=== PATIENT | female | born 1990 | race Hispanic/Latino ===

== ENCOUNTER 2017-08-08 19:38 | Emergency (ER) | payer OTHER ==
--- NOTE | 2017-08-08 20:17 | ER ---
Nurse's Notes [facility] Name: Altagracia Garner Age: 26 yrs Sex: Female : 1990 Arrival Date: 08/08/2017 Time: 19:40 Bed 14 Private MD: Cheryl Mao Diagnosis: Abnormal uterine and vaginal bleeding, unspecified Presentation: 08/08 19:46 Presenting complaint: Patient states: Vaginal bleeding that began 9 days ago, lp1 worsening; pelvic cramping; Denies any N/V. Transition of care: patient was not received from another setting of care. Onset of symptoms was August 08, 2017. Care prior to arrival: None. 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 - Social history:: Smoking status: Patient uses tobacco products, smokes one-half pack cigarettes per day. Screenin:48 Abuse screen: Denies threats or abuse. Denies injuries from another. Nutritional lp1 screening: No deficits noted. Tuberculosis screening: No symptoms or risk factors identified. Fall Risk None identified. Assessment: 20:19 General: Appears in no apparent distress. comfortable, Behavior is calm, cooperative, wh appropriate for age. Pain: Complains of pain in suprapubic pain Pain does not radiate. Pain currently is 8 out of 10 on a pain scale. Pain began 2-3 days ago. Neuro: Level of Consciousness is awake, alert, obeys commands, Oriented to person, place, time, situation. Cardiovascular: Denies chest pain, Capillary refill < 3 seconds. Respiratory: Airway is patent Respiratory effort is even, unlabored, Respiratory pattern is regular, symmetrical. GI: Abdomen is flat, non-distended, Abd is soft and non tender X 4 quads. : Last void was August 08, 2017. Reports vaginal bleeding that is moderate flow, since 7-8 days ago. EENT: No signs and/or symptoms were reported regarding the EENT system. Derm: Skin is intact, is healthy with good turgor, Skin is pink, warm \T\ dry. normal. Musculoskeletal: Range of motion: intact in all extremities. Vital Signs: 19:48 BP 126 / 89; Pulse 104; Resp 18; Temp 98.2(O); Pulse Ox 99% on R/A; Weight 72.57 kg; lp1 Height 5 ft. 1 in. (154.94 cm); Pain 9/10; 20:22 BP 106 / 89; Pulse 96; Resp 18; Pulse Ox 98% on R/A; wh 19:48 Body Mass Index 30.23 (72.57 kg, 154.94 cm) lp1 ED Course: 19:40 Patient arrived in ED. am2 19:40 Cheryl Mao is Private Physician. am2 19:47 Triage completed. lp1 19:47 Arm band placed on right wrist. 1 19:55 Santos Brandon MD is Attending Physician. 19:58 Sharona Vallejo is Primary Nurse. 20:21 Patient has correct armband on for positive identification. Placed in gown. Bed in low wh position. Call light in reach. Side rails up X 1. Pulse ox on. NIBP on. 20:22 No provider procedures requiring assistance completed. Patient did not have IV access wh during this emergency room visit. Administered Medications: No medications were administered Outcome: 20:16 Discharge ordered by . 20:43 Discharged to home 20:43 Discharged to home ambulatory. 20:43 Condition: good 20:43 Discharge instructions given to patient, Instructed on discharge instructions, follow up and referral plans. medication usage, POC Uterine Bleeding Demonstrated understanding of instructions, follow-up care, POC Prescriptions given X 1. 20:44 Patient left the ED. Signatures: Chantelle Small, RN RN lp1 Jael Richards am2 Sharona Vallejo Santos Brandon MD MD
--- NOTE | 2017-08-08 20:17 | EDPHYS ---
Physician Documentation [facility] Name: Altagracia Garner Age: 26 yrs Sex: Female : 1990 Arrival Date: 08/08/2017 Time: 19:40 Bed 14 Private MD: Cheryl Mao ED Physician Santos Brandon HPI: 08/08 20:11 This 26 yrs old Female presents to ER via Ambulatory with complaints of gs Vaginal Bleeding, Abdominal Cramping. 20:11 The patient presents with vaginal bleeding that is light. Onset: The symptoms/episode gs began/occurred 9 day(s) ago. Modifying factors: The symptoms are alleviated by nothing, the symptoms are aggravated by nothing. Associated signs and symptoms: Pertinent positives: cramping. Severity of symptoms: At their worst the symptoms were mild, in the emergency department the symptoms are unchanged. The patient's method of control includes nothing. last regular lmp 07/13, sees dr hankins. 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 - Social history:: Smoking status: Patient uses tobacco products, smokes one-half pack cigarettes per day. ROS: 20:11 All other systems are negative. gs Exam: 20:11 Head/Face: Normocephalic, atraumatic. Eyes: Pupils equal round and reactive to light, gs extra-ocular motions intact. Lids and lashes normal. Conjunctiva and sclera are non-icteric and not injected. Cornea within normal limits. Periorbital areas with no swelling, redness, or edema. ENT: Nares patent. No nasal discharge, no septal abnormalities noted. Tympanic membranes are normal and external auditory canals are clear. Oropharynx with no redness, swelling, or masses, exudates, or evidence of obstruction, uvula midline. Mucous membranes moist. Neck: Trachea midline, no thyromegaly or masses palpated, and no cervical lymphadenopathy. Supple, full range of motion without nuchal rigidity, or vertebral point tenderness. No Meningismus. Chest/axilla: Normal chest wall appearance and motion. Nontender with no deformity. No lesions are appreciated. Cardiovascular: Regular rate and rhythm with a normal S1 and S2. No gallops, murmurs, or rubs. Normal PMI, no JVD. No pulse deficits. Respiratory: Lungs have equal breath sounds bilaterally, clear to auscultation and percussion. No rales, rhonchi or wheezes noted. No increased work of breathing, no retractions or nasal flaring. Abdomen/GI: Soft, non-tender, with normal bowel sounds. No distension or tympany. No guarding or rebound. No evidence of tenderness throughout. Back: No spinal tenderness. No costovertebral tenderness. Full range of motion. Skin: Warm, dry with normal turgor. Normal color with no rashes, no lesions, and no evidence of cellulitis. MS/ Extremity: Pulses equal, no cyanosis. Neurovascular intact. Full, normal range of motion. Neuro: Awake and alert, GCS 15, oriented to person, place, time, and situation. Cranial nerves II-XII grossly intact. Motor strength 5/5 in all extremities. Sensory grossly intact. Cerebellar exam normal. Normal gait. 20:11 Constitutional: The patient appears alert, awake. Vital Signs: 19:48 BP 126 / 89; Pulse 104; Resp 18; Temp 98.2(O); Pulse Ox 99% on R/A; Weight 72.57 kg; lp1 Height 5 ft. 1 in. (154.94 cm); Pain 9/10; 20:22 BP 106 / 89; Pulse 96; Resp 18; Pulse Ox 98% on R/A; wh 19:48 Body Mass Index 30.23 (72.57 kg, 154.94 cm) lp1 MDM: 20:02 Patient medically screened. 20:11 Data reviewed: vital signs, nurses notes. 20:11 Differential diagnosis: dysfunctional uterine bleeding, dysmenorrhea, ectopic gs , ED course: nontender nonsurgical requiring exam, VSS, NO WILL REFER TO TELECOMMUNICATION ENGINEER. 08/08 19:56 Order name: Urine Microscopic Only 08/08 20:08 Order name: Urine Dipstick--Ancillary (enter results) 08/08 19:56 Order name: Urine Test (obtain specimen); Complete Time: 19:58 08/08 19:56 Order name: Urine Dipstick-Ancillary (obtain specimen); Complete Time: 19:58 08/08 20:09 Order name: Urine --Ancillary (enter results) oe 08/08 20:09 Order name: Urine --Ancillary EDMS Administered Medications: No medications were administered Disposition: 08/08/17 20:16 Discharged to Home. Impression: Abnormal uterine and vaginal bleeding, unspecified. - Condition is Stable. - Discharge Instructions: Abnormal Uterine Bleeding. - Prescriptions for Provera 10 mg Oral tablet - take 1 tablet by ORAL route once daily for 5 days; 5 tablet. - Medication Reconciliation Form, Thank You Letter, Antibiotic Education, Prescription Opioid Use form. - Follow up: Private Physician; When: 1 - 2 days; Reason: Re-evaluation by your physician. Signatures: Dispatcher [employer] EDMS Chantelle Small, RN RN lp1 Sharona Vallejo Gregory, MD MD
[2017-08-08 20:58] LABS: Urine Bacteria <20 /HPF (<20)
[2017-08-08 20:59] LABS: Urine Blood 2+ (NEG); Urine Glucose NEGATIVE (NEG); Urine Protein NEGATIVE (NEG); Urine Specific Gravity 1.025 (1.005-1.030)
[2017-08-08 20:59] LABS: Urine Specific Gravity 1.025 (1.005-1.030)
[2017-08-08 20:59] LABS: Urine Culture Reflex Order NOT NEEDED; Urine Mucus 1+ /HPF (NONE SEEN)
== END 2017-08-08 20:44 | disposition home or self-care (01) ==
LOC: ER 19:38
DX: N93.9 Abnormal uterine and vaginal bleeding, unspecified (principal); F17.210 Nicotine dependence, cigarettes, uncomplicated; Z88.5 Allergy status to narcotic agent
CPT/HCPCS: 81003; 81015; 81025; 99283

== ENCOUNTER 2017-09-06 14:15 | Emergency (ER) | payer OTHER ==
[2017-09-06] MEDS ORDERED: IBUPROFEN 200 MG TAB PO ONE (15:23)
[2017-09-06] MEDS ORDERED: ACETAMINOPHEN 500 MG TAB ONE (15:23)
--- NOTE | 2017-09-06 15:26 | EDPHYS ---
Physician Documentation [facility] Name: Altagracia Garner Age: 26 yrs Sex: Female : 1990 Arrival Date: 09/06/2017 Time: 14:26 Bed 20 Private MD: ED Physician oHlland Albrecht HPI: 09/06 15:28 This 26 yrs old Female presents to ER via Ambulatory with complaints of Chest snw Pain, Back Pain. 15:28 Onset: The symptoms/episode began/occurred suddenly, 2 day(s) ago, and became snw persistent. Associated signs and symptoms: Pertinent negatives: cough, fever, vomiting. Modifying factors: The patient symptoms are alleviated by nothing, the patient symptoms are aggravated by movement. It is unknown whether or not the patient has had similar symptoms in the past. It is unknown whether or not the patient has recently seen a physician. 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 - Social history:: Smoking status: Patient/guardian denies using tobacco. ROS: 15:27 Constitutional: Negative for fever, chills, and weight loss, Eyes: Negative for injury, snw pain, redness, and discharge, ENT: Negative for injury, pain, and discharge, Neck: Negative for injury, pain, and swelling, Cardiovascular: Negative for chest pain, palpitations, and edema, Respiratory: Negative for shortness of breath, cough, wheezing, and pleuritic chest pain, Abdomen/GI: Negative for abdominal pain, nausea, vomiting, diarrhea, and constipation, Back: Negative for injury and pain, : Negative for injury, bleeding, discharge, and swelling, Skin: Negative for injury, rash, and discoloration, Neuro: Negative for headache, weakness, numbness, tingling, and seizure. 15:27 MS/extremity: Positive for decreased range of motion, pain, tenderness, of the right shoulder joint. Exam: 15:26 Constitutional: This is a well developed, well nourished patient who is awake, alert, snw and in no acute distress. Head/Face: Normocephalic, atraumatic. Eyes: Pupils equal round and reactive to light, extra-ocular motions intact. Lids and lashes normal. Conjunctiva and sclera are non-icteric and not injected. Cornea within normal limits. Periorbital areas with no swelling, redness, or edema. ENT: Nares patent. No nasal discharge, no septal abnormalities noted. Tympanic membranes are normal and external auditory canals are clear. Oropharynx with no redness, swelling, or masses, exudates, or evidence of obstruction, uvula midline. Mucous membranes moist. Neck: Trachea midline, no thyromegaly or masses palpated, and no cervical lymphadenopathy. Supple, full range of motion without nuchal rigidity, or vertebral point tenderness. No Meningismus. Chest/axilla: Normal chest wall appearance and motion. Nontender with no deformity. No lesions are appreciated. Cardiovascular: Regular rate and rhythm with a normal S1 and S2. No gallops, murmurs, or rubs. Normal PMI, no JVD. No pulse deficits. Respiratory: Lungs have equal breath sounds bilaterally, clear to auscultation and percussion. No rales, rhonchi or wheezes noted. No increased work of breathing, no retractions or nasal flaring. Abdomen/GI: Soft, non-tender, with normal bowel sounds. No distension or tympany. No guarding or rebound. No evidence of tenderness throughout. Back: No spinal tenderness. No costovertebral tenderness. Full range of motion. Skin: Warm, dry with normal turgor. Normal color with no rashes, no lesions, and no evidence of cellulitis. Neuro: Awake and alert, GCS 15, oriented to person, place, time, and situation. Cranial nerves II-XII grossly intact. Motor strength 5/5 in all extremities. Sensory grossly intact. Cerebellar exam normal. Normal gait. Psych: Awake, alert, with orientation to person, place and time. Behavior, mood, and affect are within normal limits. 15:26 Musculoskeletal/extremity: Extremities: ROM: limited active range of motion due to pain, limited passive range of motion due to pain, Circulation is intact in all extremities. Sensation intact. Vital Signs: 14:43 BP 121 / 89; Pulse 89; Resp 16 S; Temp 97.0(TE); Pulse Ox 98% on R/A; Weight 69.4 kg aa5 (R); Height 5 ft. 1 in. (154.94 cm) (R); Pain 10/10; 15:47 BP 118 / 87; Pulse 81; Resp 18; Temp 97.9; Pulse Ox 99% on R/A; ph 14:43 Body Mass Index 28.91 (69.40 kg, 154.94 cm) aa5 MDM: 15:22 Patient medically screened. snw 15:28 Data reviewed: vital signs, nurses notes. Data interpreted: Pulse oximetry: on room air snw is 98 %. Interpretation: normal. Counseling: I had a detailed discussion with the patient and/or guardian regarding: the historical points, exam findings, and any diagnostic results supporting the discharge/admit diagnosis, the presence of at least one elevated blood pressure reading (>120/80) during this emergency department visit, the need for outpatient follow up, to return to the emergency department if symptoms worsen or persist or if there are any questions or concerns that arise at home. Special discussion: Based on the history and exam findings, there is no indication for further emergent testing or inpatient evaluation. I discussed with the patient/guardian the need to see the orthopedic surgeon for further evaluation of the symptoms. I discussed with the patient/guardian the need to see the primary care provider for further evaluation of the symptoms. Administered Medications: 15:44 Drug: Valium 2.5 mg Route: PO; iw 15:48 Follow up: Response: No adverse reaction; Medication administered at discharge. ph 15:44 Drug: Motrin 400 mg Route: PO; iw 15:48 Follow up: Response: No adverse reaction; Medication administered at discharge. ph Disposition: 09/06/17 15:25 Discharged to Home. Impression: Pain in right shoulder. - Condition is Stable. - Discharge Instructions: Arthralgia, Musculoskeletal Pain, Shoulder Pain, Cryotherapy, [id number], Heat Therapy. - Medication Reconciliation Form, Thank You Letter, Antibiotic Education, Prescription Opioid Use form. - Follow up: Private Physician; When: 1 - 2 days; Reason: Recheck today's complaints, Continuance of care, Re-evaluation by your physician. Follow up: Emergency Department; When: As needed; Reason: Worsening of condition. Addendum: 09/08/2017 10:49 Co-signature as Attending Physician, Holland Albrecht MD I agree with the assessment and w a plan of care. Signatures: Milady Spaulding, ATMOSPHERIC DRIER TENDER-C ATMOSPHERIC DRIER TENDER-Csnw Suly Jacobs, RN RN Josefina Holley, RN RN aa5 Mandi Dailey RN RN [facility], MD LANRE [facility] in [facility]: (The following items were deleted from the chart) 09/06 15:53 15:25 09/06/2017 15:25 Discharged to Home. Impression: Pain in right shoulder. ph Condition is Stable. Forms are Medication Reconciliation Form, Thank You Letter, Antibiotic Education, Prescription Opioid Use. Follow up: Private Physician; When: 1 - 2 days; Reason: Recheck today's complaints, Continuance of care, Re-evaluation by your physician. Follow up: Emergency Department; When: As needed; Reason: Worsening of condition. snw
--- NOTE | 2017-09-06 15:26 | ER ---
Nurse's Notes [facility] Name: Altagracia Garner Age: 26 yrs Sex: Female : 1990 Arrival Date: 09/06/2017 Time: 14:26 Bed 20 Private MD: Diagnosis: Pain in right shoulder Presentation: 09/06 14:42 Presenting complaint: Patient states: pain to thoracic area and pain to right side of aa5 chest that began yesterday. Pt states "my pain gets worse when I move my neck". Pt also reports nausea. Transition of care: patient was not received from another setting of care. Onset of symptoms was September 2017. Initial Sepsis Screen: Does the patient meet any 2 criteria? No. Patient's initial sepsis screen is negative. Does the patient have a suspected source of infection? No. Patient's initial sepsis screen is negative. Care prior to arrival: None. 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 - Social history:: Smoking status: Patient/guardian denies using tobacco. Screenin:46 Abuse screen: Denies threats or abuse. Denies injuries from another. Nutritional iw screening: No deficits noted. Tuberculosis screening: No symptoms or risk factors identified. Fall Risk None identified. Assessment: 15:20 General: Appears in no apparent distress. uncomfortable, slender, well groomed, iw Behavior is calm, cooperative, appropriate for age, Denies fever, feeling ill. Pain: Complains of pain in anterior aspect of right upper chest Pain radiates to right scapular area Pain began 1 day ago. Neuro: Level of Consciousness is awake, alert, obeys commands, Oriented to person, place, time, situation. Cardiovascular: Reports chest pain, Denies diaphoresis, lightheadedness, nausea, palpitations, shortness of breath, syncope, vomiting, Capillary refill < 3 seconds Patient's skin is warm and dry. Respiratory: Airway is patent Respiratory effort is even, unlabored. Derm: Skin is intact, is healthy with good turgor, Skin is pink, warm \\T\\ dry. Musculoskeletal: Circulation, motion, and sensation intact. Range of motion: intact in all extremities, Swelling absent. Vital Signs: 14:43 BP 121 / 89; Pulse 89; Resp 16 S; Temp 97.0(TE); Pulse Ox 98% on R/A; Weight 69.4 kg aa5 (R); Height 5 ft. 1 in. (154.94 cm) (R); Pain 10/10; 15:47 BP 118 / 87; Pulse 81; Resp 18; Temp 97.9; Pulse Ox 99% on R/A; ph 14:43 Body Mass Index 28.91 (69.40 kg, 154.94 cm) aa5 ED Course: 14:26 Patient arrived in ED. as 14:43 Triage completed. aa5 14:43 Arm band placed on. aa5 15:19 Anusha Zelaya LVN is Primary Nurse. ed1 15:19 Milady Spaulding FNP-C is [facility]. snw 15:19 Holland Albrecht MD is Attending Physician. snw 15:47 Patient has correct armband on for positive identification. Bed in low position. Call ph light in reach. Side rails up X 1. Pulse ox on. NIBP on. 15:47 No provider procedures requiring assistance completed. Patient did not have IV access ph during this emergency room visit. Patient maintains SpO2 saturation greater than 95% on room air. Administered Medications: 15:44 Drug: Valium 2.5 mg Route: PO; iw 15:48 Follow up: Response: No adverse reaction; Medication administered at discharge. ph 15:44 Drug: Motrin 400 mg Route: PO; iw 15:48 Follow up: Response: No adverse reaction; Medication administered at discharge. ph Outcome: 15:25 Discharge ordered by . snw 15:52 Discharged to home ambulatory, with family. ph 15:52 Condition: good 15:52 Discharge instructions given to patient, Instructed on discharge instructions, follow up and referral plans. Demonstrated understanding of instructions, follow-up care. 15:53 Patient left the ED. ph Signatures: Milady Spaulding FNP-C COMMERCIAL INSULATOR-Divya Granados Irene, RN RN Josefina Holley RN RN aa5 Anusha Zelaya LVN LVN ed1 Mandi Dailey, RN RN ph
[2017-09-06] MEDS ORDERED: DIAZEPAM 5 MG TABLET ONE (15:39)
[2017-09-06] MEDS ORDERED: IBUPROFEN 400 MG TAB ONE (15:39)
== END 2017-09-06 15:53 | disposition home or self-care (01) ==
LOC: ER 14:15
DX: M25.511 Pain in right shoulder (principal); R07.9 Chest pain, unspecified; M54.9 Dorsalgia, unspecified
CPT/HCPCS: 99284

== ENCOUNTER 2018-04-08 19:56 | Emergency (ER) | payer OTHER ==
--- OUTSIDE RECORDS SUMMARY | 2018-04-08 19:58 | XMS REPORT ---
:1990 [facility] Address [address] [place] [address] Care Team Providers Name Role Phone Unavailable Unavailable Unavailable Payers Payer Name Policy Type Policy Number Effective Date Expiration Date Problems This patient has no known problems. Allergies, Adverse Reactions, Alerts Allergy Allergy Status Severity Reaction(s) Onset Inactive Treating Comments Name Type Date Date Clinician ketorolac KANNAN Active [place] 2017-12 00:00:0 0 Medications This patient has no known medications.
[2018-04-08 20:44] LABS: Urine Blood NEGATIVE (NEG); Urine Glucose NEGATIVE (NEG); Urine Protein NEGATIVE (NEG)
[2018-04-08 20:50] LABS: Urine RBC NONE SEEN /HPF (NONE SEEN)
[2018-04-08 20:51] LABS: Urine Bacteria <20 /HPF (<20)
[2018-04-08 20:52] LABS: Urine Culture Reflex Order REFLEXED
[2018-04-08 21:02] LABS: Absolute Lymphocytes (CBC) 1.5 K/uL (0.7-4.9); Absolute Monocytes 0.5 K/uL (0.1-1.3); Absolute Neutrophil 6.4 K/uL (1.8-8.0); Basophils % 0.6 % (0-1.3); Hematocrit 36.1 % (36.0-45.0); Lymphocytes % 17.3 % (15.3-44.8); MCH 28.4 pg (27.0-35.0); MCV 84.9 fL (80-100); Monocytes % 5.9 % (3.3-12.3); RBC Red Blood Cell Count 4.25 M/uL (3.86-4.86)
[2018-04-08 21:04] LABS: Potassium 3.6 mmol/L (3.5-5.1)
[2018-04-08] MEDS ORDERED: NA CHLORIDE 0.9% 1,000 ML ONE (21:12)
--- NOTE | 2018-04-08 21:22 | ER ---
Nurse's Notes [facility] Name: Altagracia Garner Age: 27 yrs Sex: Female : 1990 Arrival Date: 04/08/2018 Time: 19:58 Bed 30 Private MD: Diagnosis: Cystitis Presentation: 04/08 20:04 Presenting complaint: Patient states: left lower abd pain, left flank pain X2 days. pt ak1 c/o nausea and Diarrhea X2 days. 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 Transition of care: patient was not received from another setting of care. Onset of symptoms is unknown. Risk Assessment: Do you want to hurt yourself or someone else? Patient reports no desire to harm self or others. Initial Sepsis Screen: Does the patient meet any 2 criteria? No. Patient's initial sepsis screen is negative. Does the patient have a suspected source of infection? No. Patient's initial sepsis screen is negative. Care prior to arrival: None. 20:04 Acuity: MEG 3 ak1 20:04 Method Of Arrival: Ambulatory ak1 Triage Assessment: 20:05 General: Appears in no apparent distress. Behavior is calm, cooperative. 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 - Social history:: Smoking status: Patient/guardian denies using tobacco. - Ebola Screening: : No symptoms or risks identified at this time. Screenin:10 Abuse screen: Denies threats or abuse. Denies injuries from another. Nutritional kr2 screening: No deficits noted. Tuberculosis screening: No symptoms or risk factors identified. Fall Risk None identified. Assessment: 20:06 General: Appears in no apparent distress. uncomfortable, well groomed, well developed, kr2 well nourished, Behavior is calm, cooperative, appropriate for age. Pain: Complains of pain in left lower quadrant Pain does not radiate. Pain currently is 5 out of 10 on a pain scale. Quality of pain is described as sharp, Is continuous, Alleviated by rest, Aggravated by increased activity. Neuro: Level of Consciousness is awake, alert, obeys commands, Oriented to person, place, time, situation, Appropriate for age. Cardiovascular: Capillary refill < 3 seconds in bilateral fingers Patient's skin is warm and dry. Respiratory: Airway is patent Respiratory effort is even, unlabored, Respiratory pattern is regular, symmetrical. GI: GI: Abdomen is flat, non-distended, Abd is soft X 4 quads Abdomen is tender to palpation in left lower quadrant Reports nausea. : Denies burning with urination. EENT: Oral mucosa is moist. Derm: Skin is intact, is healthy with good turgor, Skin is pink, warm \T\ dry. Musculoskeletal: Circulation, motion, and sensation intact. 21:20 Reassessment: Patient appears in no apparent distress at this time. Patient and/or kr2 family updated on plan of care and expected duration. Pain level reassessed. Patient is alert, oriented x 3, equal unlabored respirations, skin warm/dry/pink. Patient states symptoms have improved. Vital Signs: 20:03 BP 122 / 85; Pulse 99; Resp 18; Temp 98.1; Pulse Ox 100% on R/A; Weight 63.5 kg (R); ak1 Height 5 ft. 9 in. (175.26 cm) (R); Pain 10/10; 22:49 BP 118 / 86; Pulse 95; Resp 18; Pulse Ox 99% on R/A; kr2 20:03 Body Mass Index 20.67 (63.50 kg, 175.26 cm) ak1 ED Course: 19:58 Patient arrived in ED. ds1 20:03 Arm band placed on Patient placed in an exam room, on a stretcher, Patient notified of ak1 wait time. 20:04 Triage completed. ak1 20:05 Patient has correct armband on for positive identification. Bed in low position. Call kr2 light in reach. Side rails up X 1. Pulse ox on. NIBP on. Door closed. Warm blanket given. Head of bed elevated. 20:11 Santos Brandon MD is Attending Physician. gs 20:28 Benita Aviles RN is Primary Nurse. kr2 20:38 Patient taken to ultrasound. via wheelchair. cy 20:39 Urine collected: clean catch specimen, cloudy. Inserted saline lock: 20 gauge in right mt antecubital area, using aseptic technique. Blood collected. 21:04 Renal Ultrasound-Complete In Process Unspecified. EDMS 21:04 TRANSVAG OB In Process Unspecified. EDMS 21:07 Ultrasound completed. Patient tolerated well. Patient moved back from ultrasound. cy 21:45 No provider procedures requiring assistance completed. Patient did not have IV access kr2 during this emergency room visit. Administered Medications: Discontinued: NS 0.9% 1000 ml IV at 1 bolus Per protocol; 1000 mL bolus 21:15 Drug: NS 0.9% 1000 ml Route: IV; Rate: 1 bolus; Site: right antecubital; kr2 21:55 Follow up: Response: No adverse reaction; IV Status: Order to discontinue infusion kr2 Outcome: 21:21 Discharge ordered by . justin 21:50 Discharged to home ambulatory. kr2 21:50 Condition: good 21:50 Discharge instructions given to patient, Instructed on discharge instructions, follow up and referral plans. Demonstrated understanding of instructions, follow-up care. 21:57 Patient left the ED. kr2 Signatures: Dispatcher [employer] [facility] Laure Davis ds1 Krysten Slater RN RN ak1 Isa Tariq sc Santos Brandon MD MD gs Reaves, Karey, RN RN kr2 Jessica Tsang cy
--- NOTE | 2018-04-08 21:22 | RAD REPORT ---
EXAM DESCRIPTION: US - Renal Ultrasound-Complete - 04/08/2018 9:03 pm CLINICAL HISTORY: . Abdominal pain COMPARISON: None. FINDINGS: The right kidney measures 11 cm with a normal echotexture. The left kidney measures 11 cm with a normal echotexture. Hydronephrosis is not seen. No gross abnormality of bladder is seen IMPRESSION: Unremarkable renal ultrasound.
--- NOTE | 2018-04-08 21:22 | EDPHYS ---
Physician Documentation [facility] Name: Altagracia Garner Age: 27 yrs Sex: Female : 1990 Arrival Date: 04/08/2018 Time: 19:58 Bed 30 Private MD: ED Physician Santos Brandon HPI: 04/09 19:50 This 27 yrs old Female presents to ER via Ambulatory with complaints of gs Abdominal Pain, 8 Wks Preg. 19:50 Onset: The symptoms/episode began/occurred 2 day(s) ago. gs 20:46 Associated signs and symptoms: Pertinent positives: cramping, dysuria, Pertinent gs negatives: fever. Severity of symptoms: At their worst the symptoms were mild, in the emergency department the symptoms are unchanged. 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 - Social history:: Smoking status: Patient/guardian denies using tobacco. - Ebola Screening: : No symptoms or risks identified at this time. ROS: 04/09 20:46 All other systems are negative. gs 20:46 : Negative for vaginal bleeding, vaginal discharge. gs Exam: 20:46 Head/Face: Normocephalic, atraumatic. Eyes: Pupils equal round and reactive to light, gs extra-ocular motions intact. Lids and lashes normal. Conjunctiva and sclera are non-icteric and not injected. Cornea within normal limits. Periorbital areas with no swelling, redness, or edema. ENT: Nares patent. No nasal discharge, no septal abnormalities noted. Tympanic membranes are normal and external auditory canals are clear. Oropharynx with no redness, swelling, or masses, exudates, or evidence of obstruction, uvula midline. Mucous membranes moist. Neck: Trachea midline, no thyromegaly or masses palpated, and no cervical lymphadenopathy. Supple, full range of motion without nuchal rigidity, or vertebral point tenderness. No Meningismus. Chest/axilla: Normal chest wall appearance and motion. Nontender with no deformity. No lesions are appreciated. Cardiovascular: Regular rate and rhythm with a normal S1 and S2. No gallops, murmurs, or rubs. Normal PMI, no JVD. No pulse deficits. Respiratory: Lungs have equal breath sounds bilaterally, clear to auscultation and percussion. No rales, rhonchi or wheezes noted. No increased work of breathing, no retractions or nasal flaring. Back: No spinal tenderness. No costovertebral tenderness. Full range of motion. Skin: Warm, dry with normal turgor. Normal color with no rashes, no lesions, and no evidence of cellulitis. MS/ Extremity: Pulses equal, no cyanosis. Neurovascular intact. Full, normal range of motion. Neuro: Awake and alert, GCS 15, oriented to person, place, time, and situation. Cranial nerves II-XII grossly intact. Motor strength 5/5 in all extremities. Sensory grossly intact. Cerebellar exam normal. Normal gait. 20:46 Constitutional: The patient appears alert, awake. 20:46 Abdomen/GI: Palpation: mild abdominal tenderness, in the suprapubic area, rebound tenderness, is not appreciated. Vital Signs: 04/08 20:03 BP 122 / 85; Pulse 99; Resp 18; Temp 98.1; Pulse Ox 100% on R/A; Weight 63.5 kg (R); ak1 Height 5 ft. 9 in. (175.26 cm) (R); Pain 10/10; 22:49 BP 118 / 86; Pulse 95; Resp 18; Pulse Ox 99% on R/A; kr2 20:03 Body Mass Index 20.67 (63.50 kg, 175.26 cm) ak1 MDM: 20:15 Patient medically screened. 04/09 20:46 Differential diagnosis: threatened Ab, inevitable Ab, urinary tract infection. Data reviewed: vital signs, nurses notes. Response to treatment: the patient's symptoms have markedly improved after treatment, and as a result, I will discharge patient. 04/08 20:27 Order name: CBC with Diff; Complete Time: 21:20 04/08 20:27 Order name: Basic Metabolic Panel; Complete Time: 21:20 04/08 20:27 Order name: Urine Microscopic Only; Complete Time: 21:20 04/08 20:40 Order name: Urine Dipstick--Ancillary (enter results); Complete Time: 21:20 hi 04/08 20:40 Order name: Urine --Ancillary (enter results); Complete Time: 21:20 hi 04/08 20:53 Order name: Urine Culture EDNJ 04/08 20:27 Order name: Urine Dipstick-Ancillary (obtain specimen); Complete Time: 20:40 04/08 20:31 Order name: Renal Ultrasound-Complete; Complete Time: 21:36 EDMS 04/08 20:33 Order name: TRANSVAG OB; Complete Time: 21:36 EDMS Administered Medications: Discontinued: NS 0.9% 1000 ml IV at 1 bolus Per protocol; 1000 mL bolus 04/08 21:15 Drug: NS 0.9% 1000 ml Route: IV; Rate: 1 bolus; Site: right antecubital; kr2 21:55 Follow up: Response: No adverse reaction; IV Status: Order to discontinue infusion kr2 Disposition: 04/08/18 21:21 Discharged to Home. Impression: Cystitis. - Condition is Stable. - Discharge Instructions: Urinary Tract Infection, Adult, First Trimester of . - Prescriptions for Keflex 500 mg Oral Capsule - take 1 capsule by ORAL route every 12 hours for 5 days; 10 capsule. - Medication Reconciliation Form, Thank You Letter, Antibiotic Education, Prescription Opioid Use form. - Follow up: Private Physician; When: 2 - 3 days; Reason: Re-evaluation by your physician. Signatures: Dispatcher [facility] Krysten Slater RN RN ak1 Santos Brandon MD MD Benita Aviles RN RN kr2 Corrections: (The following items were deleted from the chart) 20:31 20:28 Rp Exam Limited+US.RAD.BRZ ordered. [facility] EDNJ 20:33 20:28 Pelvis Complete+US.RAD.BRZ ordered. [facility] 21:57 21:21 04/08/2018 21:21 Discharged to Home. Impression: Cystitis. Condition is Stable. kr2 Forms are Medication Reconciliation Form, Thank You Letter, Antibiotic Education, Prescription Opioid Use. Follow up: Private Physician; When: 2 - 3 days; Reason: Re-evaluation by your physician.
--- NOTE | 2018-04-08 21:25 | RAD REPORT ---
EXAM DESCRIPTION: US - TRANSVAG OB - 04/08/2018 9:03 pm CLINICAL HISTORY: with abdominal pain COMPARISON: None FINDINGS: The uterus measures 10 x 8 x 8 centimeters. A gestational sac is present within the endom etrium. Within this is a yolk sac and pole with a crown-rump length 2.8 centimeters. Cardiac ac tivity 166 beats per minute. Left ovary is normal in size and echotexture. Right ovary was not seen. No adnexal mass visualized No significant free fluid. IMPRESSION: Single live intrauterine estimated gestational age 9 weeks 4 days RUPERTO 11/08/19 19
== END 2018-04-08 21:57 | disposition home or self-care (01) ==
LOC: ER 19:56
DX: O23.11 Infections of bladder in pregnancy, first trimester (principal); Z3A.09 9 weeks gestation of pregnancy
CPT/HCPCS: 36415; 76770; 76813; 80048; 81003; 81015; 81025; 85025; 87086; 87088; 96360; 99284; J7030

== ENCOUNTER 2018-05-22 12:49 | Emergency (ER) | payer OTHER ==
--- OUTSIDE RECORDS SUMMARY | 2018-05-22 12:53 | XMS REPORT ---
:1990 [facility] Address [address] [place] [address] Care Team Providers Name Role Phone Unavailable Unavailable Unavailable Payers Payer Name Policy Type Policy Number Effective Date Expiration Date Problems This patient has no known problems. Allergies, Adverse Reactions, Alerts Allergy Allergy Status Severity Reaction(s) Onset Inactive Treating Comments Name Type Date Date Clinician ketorolac DA Active [place] 2018-05 00:00:0 0 ketorolac DA Active [place] 2017-12 00:00:0 0 Medications This patient has no known medications.
--- NOTE | 2018-05-22 15:16 | RAD REPORT ---
EXAM DESCRIPTION: US - OB Limited - 05/22/2018 3:07 pm CLINICAL HISTORY: with abdominal COMPARISON: April 2018 FINDINGS: Single live intrauterine is in breech presentation. The placenta is anterior. Am niotic fluid is within normal limits. Cardiac activity 147 beats per minute. BPD 3.5 centimeter 16 weeks 5 days HC 12.2 centimeter 16 weeks 1 day AC 10.59 centimeter 16 weeks 4 days FL 2.1 centimeter 16 weeks 1 day Cervix 3.1 centimeters The right and left adnexa appear unremarkable. IMPRESSION: A single live into in breech presentation Estimated gestational age 16 weeks 2 days RUPERTO 11/04/2018 Normal amniotic fluid If a survey is desired it should be performed in proximally 2 weeks
[2018-05-22] MEDS ORDERED: PROMETHAZINE 25 MG/ML VIAL ONE (15:42)
[2018-05-22] MEDS ORDERED: NA CHLORIDE 0.9% 1,000 ML ONE (15:42)
[2018-05-22 15:55] LABS: BUN Blood Urea Nitrogen 8 mg/dL (7-18); Bicarbonate 25 mmol/L (21-32); Glucose Level 74 mg/dL (74-106); Potassium 3.9 mmol/L (3.5-5.1); Sodium Level 139 mmol/L (136-145)
[2018-05-22 15:58] LABS: Absolute Lymphocytes (CBC) 1.9 K/uL (0.7-4.9); Absolute Monocytes 0.6 K/uL (0.1-1.3); Absolute Neutrophil 6.3 K/uL (1.8-8.0); Basophils % 0.4 % (0-1.3); Eosinophils % 0.4 % (0-4.4); Lymphocytes % 21.2 % (15.3-44.8); MPV 8.8 fL (7.6-11.3); RBC Red Blood Cell Count 3.95 M/uL (3.86-4.86)
[2018-05-22 17:06] LABS: Urine Bacteria 20-50 /HPF (<20); Urine Culture Reflex Order REFLEXED; Urine RBC <5 /HPF (NONE SEEN)
--- NOTE | 2018-05-22 17:21 | ER ---
Nurse's Notes [facility] Name: Altagracia Garner Age: 27 yrs Sex: Female : 1990 Arrival Date: 05/22/2018 Time: 12:53 Bed 23 Private MD: Diagnosis: Vomiting of , unspecified Presentation: 05/22 12:56 Presenting complaint: Patient states: N/V/D and headache x 2 days, not tolerating hb fluids. Pt reports she is 16 weeks , , RUPERTO 11/06/18. Transition of care: patient was not received from another setting of care. Onset of symptoms was May 21, 2018. Risk Assessment: Do you want to hurt yourself or someone else? Patient reports no desire to harm self or others. Care prior to arrival: None. 12:56 Method Of Arrival: Ambulatory hb 12:56 Acuity: MEG 3 hb 17:36 Initial Sepsis Screen: Does the patient meet any 2 criteria? RR > 20 per min. Does the ch patient have a suspected source of infection? No. Patient's initial sepsis screen is negative. Triage Assessment: 16:00 General: Appears in no apparent distress. Behavior is cooperative. GI: Reports nausea, ch vomiting. 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 - Social history:: Smoking status: Patient/guardian denies using tobacco. - Ebola Screening: : No symptoms or risks identified at this time. Screenin:59 Abuse screen: Denies threats or abuse. Denies injuries from another. Nutritional hb screening: No deficits noted. Tuberculosis screening: No symptoms or risk factors identified. Fall Risk None identified. Assessment: 15:24 Pain: Denies pain. Neuro: No deficits noted. Respiratory: Airway is patent Respiratory ch effort is even, unlabored, Breath sounds are clear bilaterally. GI: Abdomen is round non-distended, Reports diarrhea, nausea, vomiting. : Denies vaginal bleeding. Derm: Skin is intact, Skin is dry, Skin is pale. Musculoskeletal: No signs and/or symptoms reported regarding the musculoskeletal system. 15:41 Reassessment: Patient appears in no apparent distress at this time. No changes from previously documented assessment. Patient and/or family updated on plan of care and expected duration. Pain level reassessed. 17:34 Reassessment: Patient appears in no apparent distress at this time. Patient and/or ch family updated on plan of care and expected duration. Pain level reassessed. Patient is alert, oriented x 3, equal unlabored respirations, skin warm/dry/pink. Patient states feeling better. Patient states symptoms have improved. pt drinks cup of water, tolerated well. pt states she feels better. . Vital Signs: 12:57 BP 136 / 80; Pulse 102; Resp 16; Temp 97.5; Pulse Ox 100% on R/A; Pain 9/10; hb 15:14 BP 124 / 104; Pulse 90; Resp 20; Pulse Ox 100% ; Pain 10/10; ds4 15:41 BP 110 / 62; Pulse 88; Resp 14; Temp 98.9; Pulse Ox 99% on R/A; Pain 0/10; ch 17:34 BP 108 / 52; Pulse 74; Resp 16; Temp 98.4; Pulse Ox 99% on R/A; Pain 0/10; ch ED Course: 12:53 Patient arrived in ED. rg4 12:57 Triage completed. hb 12:59 Arm band placed on. hb 14:54 Kylie Haas FNP-C is PHCP. kb 14:54 Steve Dodson MD is Attending Physician. kb 15:07 Comfort Hobson, PAULINO is Primary Nurse. ch 15:08 US OB Limited In Process Unspecified. EDMS 15:24 No apparent distress. Resting quietly. ch 15:24 Patient has correct armband on for positive identification. Placed in gown. Bed in low ch position. Call light in reach. Side rails up X 1. Adult w/ patient. Pulse ox on. NIBP on. 15:24 No provider procedures requiring assistance completed. Urine collected:. Inserted ch saline lock: 18 gauge in right antecubital area, using aseptic technique. Blood collected. 15:41 Warm blanket given. ch 17:34 IV discontinued, intact, bleeding controlled, No redness/swelling at site. Pressure ch dressing applied. Administered Medications: 15:40 Drug: NS 0.9% 1000 ml Route: IV; Rate: 1000 ml; Site: right antecubital; ch 16:20 Follow up: IV Status: Completed infusion; IV Intake: 1000ml ch 15:40 Drug: Phenergan 12.5 mg Route: IVP; Infused Over: 10 mins; Site: right antecubital; ch 16:10 Follow up: Response: No adverse reaction; Marked relief of symptoms ch Intake: 16:20 IV: 1000ml; Total: 1000ml. ch Outcome: 17:20 Discharge ordered by . kb 17:34 Discharged to home ambulatory, with family. ch 17:34 Condition: improved 17:34 Discharge instructions given to patient, Instructed on discharge instructions, follow up and referral plans. medication usage, Demonstrated understanding of instructions, follow-up care, medications, Prescriptions given X 1. 17:40 Patient left the ED. eb Signatures: Dispatcher [employer] [facility] Kylie Haas, ACLS NURSE-C ACLS NURSE-Comfort Powell, PAULINO RN Osman Hampton ds4 Angelic Wright RN RN Joanie Kramer rg4 Michela Jacobsen Corrections: (The following items were deleted from the chart) 12:58 12:56 Presenting complaint: Patient states: N/V/D x 2 days, not tolerating fluids. Pt hb reports she is 16 weeks , , RUPERTO 11/06/18 hb
--- NOTE | 2018-05-22 17:21 | EDPHYS ---
Physician Documentation [facility] Name: Altagracia Garner Age: 27 yrs Sex: Female : 1990 Arrival Date: 05/22/2018 Time: 12:53 Bed 23 Private MD: ED Physician Steve Dodson HPI: 05/22 15:36 This 27 yrs old Female presents to ER via Ambulatory with complaints of kb Vomiting, Decreased Movement 16 wks . 15:15 The estimated gestational age is 16 weeks. kb 15:36 The patient presents to the emergency department with nausea and vomiting. kb course: care: private OB physician, Leakage of Fluid: none appreciated, Risk/complications: no obvious risks or complications are appreciated. Previous pregnancies: in previous pregnancies patient has had. Associated signs and symptoms: Pertinent positives: diarrhea, nausea, vomiting, Pertinent negatives: abdominal pain, chest pain, dysuria, fever, frequency, ruptured membranes, seizure, shortness of breath, vaginal bleeding, vaginal discharge. The patient has not experienced similar symptoms in the past. The patient has not recently seen a physician. Pt reports decreased appetite, unable to keep anything down. n/v/d for 2 days. OB is OOT. . 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 - Social history:: Smoking status: Patient/guardian denies using tobacco. - Ebola Screening: : No symptoms or risks identified at this time. ROS: 15:39 Constitutional: Negative for fever, chills, and weight loss, Cardiovascular: Negative kb for chest pain, palpitations, and edema, Respiratory: Negative for shortness of breath, cough, wheezing, and pleuritic chest pain, Back: Negative for injury and pain, : Negative for injury, bleeding, discharge, and swelling, MS/Extremity: Negative for injury and deformity, Skin: Negative for injury, rash, and discoloration, Neuro: Negative for headache, weakness, numbness, tingling, and seizure. 15:39 Abdomen/GI: Positive for abdominal pain, nausea, vomiting, and diarrhea. Exam: 15:39 Constitutional: This is a well developed, well nourished patient who is awake, alert, kb and in no acute distress. Head/Face: Normocephalic, atraumatic. Chest/axilla: Normal chest wall appearance and motion. Nontender with no deformity. No lesions are appreciated. Cardiovascular: Regular rate and rhythm with a normal S1 and S2. No gallops, murmurs, or rubs. Normal PMI, no JVD. No pulse deficits. Respiratory: Lungs have equal breath sounds bilaterally, clear to auscultation and percussion. No rales, rhonchi or wheezes noted. No increased work of breathing, no retractions or nasal flaring. Abdomen/GI: Soft, non-tender, with normal bowel sounds. No distension or tympany. No guarding or rebound. No evidence of tenderness throughout. Back: No spinal tenderness. No costovertebral tenderness. Full range of motion. Skin: Warm, dry with normal turgor. Normal color with no rashes, no lesions, and no evidence of cellulitis. MS/ Extremity: Pulses equal, no cyanosis. Neurovascular intact. Full, normal range of motion. Neuro: Awake and alert, GCS 15, oriented to person, place, time, and situation. Cranial nerves II-XII grossly intact. Motor strength 5/5 in all extremities. Sensory grossly intact. Cerebellar exam normal. Normal gait. Vital Signs: 12:57 BP 136 / 80; Pulse 102; Resp 16; Temp 97.5; Pulse Ox 100% on R/A; Pain 9/10; hb 15:14 BP 124 / 104; Pulse 90; Resp 20; Pulse Ox 100% ; Pain 10/10; ds4 15:41 BP 110 / 62; Pulse 88; Resp 14; Temp 98.9; Pulse Ox 99% on R/A; Pain 0/10; ch 17:34 BP 108 / 52; Pulse 74; Resp 16; Temp 98.4; Pulse Ox 99% on R/A; Pain 0/10; ch MDM: 14:54 Patient medically screened. kb 15:39 Data reviewed: vital signs, nurses notes. Data interpreted: Pulse oximetry: on room air kb is 100 %. Interpretation: normal. 17:20 Counseling: I had a detailed discussion with the patient and/or guardian regarding: the kb historical points, exam findings, and any diagnostic results supporting the discharge/admit diagnosis, lab results, radiology results, the need for outpatient follow up, an OB/Gyne specialist, to return to the emergency department if symptoms worsen or persist or if there are any questions or concerns that arise at home. ED course: Pt tolerating PO intake. 05/22 15:14 Order name: CBC with Diff; Complete Time: 16:10 kb 05/22 15:14 Order name: Basic Metabolic Panel; Complete Time: 15:58 kb 05/22 15:16 Order name: Urine Dipstick--Ancillary (enter results) eb 05/22 15:16 Order name: Urine --Ancillary (enter results) eb 05/22 16:10 Order name: Urine Microscopic Only; Complete Time: 17:17 kb 05/22 17:07 Order name: Urine Culture EDAK 05/22 14:30 Order name: OB Limited; Complete Time: 15:19 snw 05/22 15:14 Order name: Urine Dipstick-Ancillary (obtain specimen); Complete Time: 15:41 kb 05/22 15:14 Order name: IV Start; Complete Time: 15:41 kb 05/22 16:10 Order name: PO challenge; Complete Time: 16:58 kb Administered Medications: 15:40 Drug: NS 0.9% 1000 ml Route: IV; Rate: 1000 ml; Site: right antecubital; ch 16:20 Follow up: IV Status: Completed infusion; IV Intake: 1000ml ch 15:40 Drug: Phenergan 12.5 mg Route: IVP; Infused Over: 10 mins; Site: right antecubital; ch 16:10 Follow up: Response: No adverse reaction; Marked relief of symptoms ch Disposition: 05/22/18 17:20 Discharged to Home. Impression: Vomiting of , unspecified. - Condition is Stable. - Discharge Instructions: Morning Sickness, [id number]. - Prescriptions for Phenergan 25 mg Rectal Suppository - insert 1 suppository by RECTAL route every 6 hours As needed; 12 suppository. - Medication Reconciliation Form, Thank You Letter, Antibiotic Education, Prescription Opioid Use form. - Follow up: Emergency Department; When: As needed; Reason: Worsening of condition. Follow up: Private Physician; When: 2 - 3 days; Reason: Recheck today's complaints, Continuance of care, Re-evaluation by your physician. Addendum: 05/29/2018 09:32 Co-signature as Attending Physician, Steve Dodson MD I agree with the assessment and k dr plan of care. Signatures: Dispatcher [employer] EDMS Kylie Haas, TAILOR HELPER-C TAILOR HELPER-Ckb Comfort Hobson, RN RN Steve Dodson MD MD [email or web address] Angelic Wright, RN RN Michela Jacobsen Corrections: (The following items were deleted from the chart) 05/22 17:40 17:20 05/22/2018 17:20 Discharged to Home. Impression: Vomiting of , eb unspecified. Condition is Stable. Forms are Medication Reconciliation Form, Thank You Letter, Antibiotic Education, Prescription Opioid Use. Follow up: Emergency Department; When: As needed; Reason: Worsening of condition. Follow up: Private Physician; When: 2 - 3 days; Reason: Recheck today's complaints, Continuance of care, Re-evaluation by your physician. kb
[2018-05-22 18:56] LABS: Urine Blood NEGATIVE (NEG); Urine Glucose NEGATIVE (NEG); Urine Protein NEGATIVE (NEG); Urine pH 6.5 (5.0-7.0)
== END 2018-05-22 17:40 | disposition home or self-care (01) ==
LOC: ER 12:49
DX: O21.9 Vomiting of pregnancy, unspecified (principal); Z3A.16 16 weeks gestation of pregnancy
CPT/HCPCS: 36415; 76815; 80048; 81003; 81015; 81025; 85025; 87086; 87088; J2550; J7030